=== PATIENT | female | born 1940 | race Caucasian/White ===

== ENCOUNTER 2022-09-04 06:47 | Emergency (ER) | payer MEDICARE ==
[~2022-09-04] VITALS: Ht 172.7 cm; Wt 93.0 kg
[2022-09-04 06:47] VITALS: BP_SYST 151
[2022-09-04] MEDS ORDERED: ASPIRIN 81 MG TABLET(ECOTRIN) PO ONE (07:00)
[2022-09-04 07:10] LABS: BASOPHILS # (AUTO) 0.1 K/uL (0.0-0.2); BASOPHILS % (AUTO) 0.9 % (0.0-2.0); EOSINOPHILS # (AUTO) 0.1 K/uL (0.0-0.4); EOSINOPHILS % (AUTO) 1.1 % (0.0-4.0); HEMATOCRIT 32.2 % (36-48); HEMOGLOBIN 10.4 g/dL (12.0-16.0); LYMPHOCYTES # (AUTO) 1.5 K/uL (1.0-5.5); LYMPHOCYTES % (AUTO) 12.1 % (20.5-51.5); MEAN CORPUSCULAR HEMOGLOBIN 29 pg (27-31); MEAN CORPUSCULAR HGB CONC 32 % (32-36); MEAN CORPUSCULAR VOLUME 90 fL (79.0-98.0); MONOCYTES # (AUTO) 1.1 K/uL (0.0-1.0); MONOCYTES % (AUTO) 9.3 % (1.7-9.3); NEUTROPHILS # (AUTO) 9.3 K/uL (1.8-7.7); NEUTROPHILS % (AUTO) 76.6 % (40.0-70.0); PLATELET COUNT (AUTO) 247 K/uL (130-430); RED BLOOD CELL COUNT(AUTO) 3.59 MIL/uL (4.2-6.2); WHITE BLOOD COUNT (AUTO) 12.1 K/uL (4.8-10.8)
[2022-09-04 07:37] LABS: ANION GAP 13 (5-15); CHLORIDE 105 mmol/L (98-107); CREATININE 3.07 mg/dL (0.55-1.30); GLUCOSE 139 mg/dL (70-99); UREA NITROGEN, BLOOD 48 mg/dL (8-21)
[2022-09-04 07:44] LABS: ALANINE AMINOTRANSFERASE 17 U/L (12-78); ALBUMIN 2.7 g/dL (3.4-4.8); ASPARTATE AMINOTRANSFERASE 13 U/L (10-37); TOTAL BILIRUBIN 0.3 mg/dL (0.0-1.0)
[2022-09-04 07:49] LABS: INR 3.5 (0.8-1.2)
[2022-09-04 07:51] LABS: PROTHROMBIN TIME 34.5 SECS (9.5-12.5)
[2022-09-04 12:56] VITALS: BP_SYST 159
== END 2022-09-04 12:53 | disposition short-term general hospital (02) ==
LOC: SED 06:47
DX: I24.9 Acute ischemic heart disease, unspecified (principal); R68.84 Jaw pain; M79.602 Pain in left arm; I10 Essential (primary) hypertension; Z79.899 Other long term (current) drug therapy; Z20.822 Contact with and (suspected) exposure to COVID-19
CPT/HCPCS: 36415; 71045; 80053; 83880; 84484; 85025; 85610-TC; 85730-TC; 99285

== ENCOUNTER 2022-11-09 09:55 | Emergency (ER) | payer MEDICARE ==
[~2022-11-09] VITALS: Ht 165.1 cm; Wt 77.1 kg
[2022-11-09 10:03] VITALS: BP_SYST 160; PULSE 80; RESP 18; TEMP 98.3; O2SAT 98
[2022-11-09] MEDS ORDERED: IPRATROPIUM/ALBUTEROL SULFATE 3 ML AMPUL.NEB (DUONEB) ONE (10:14)
[2022-11-09] MEDS ORDERED: ALBUTEROL SULFATE 0.083% 2.5 MG/3 ML VIAL.NEB INH ONE (10:15)
[2022-11-09] MEDS ORDERED: methylPREDNISolone SOD SUCC/PF 62.5 MG/ML VIAL IVP ONE (10:15)
[2022-11-09] MEDS ORDERED: IPRATROPIUM BROM 0.5 MG/2.5 ML VIAL.NEB (ATROVENT) INH ONE (10:15)
[2022-11-09 10:37] LABS: BASOPHILS # (AUTO) 0.1 K/uL (0.0-0.2); BASOPHILS % (AUTO) 0.4 % (0.0-2.0); EOSINOPHILS % (AUTO) 0.2 % (0.0-4.0); HEMATOCRIT 27.7 % (36-48); HEMOGLOBIN 9.1 g/dL (12.0-16.0); LYMPHOCYTES # (AUTO) 1.6 K/uL (1.0-5.5); MEAN CORPUSCULAR HEMOGLOBIN 28 pg (27-31); MEAN CORPUSCULAR HGB CONC 33 % (32-36); MEAN CORPUSCULAR VOLUME 86 fL (79.0-98.0); MONOCYTES # (AUTO) 2.5 K/uL (0.0-1.0); MONOCYTES % (AUTO) 12.5 % (1.7-9.3); NEUTROPHILS # (AUTO) 15.8 K/uL (1.8-7.7); NEUTROPHILS % (AUTO) 78.9 % (40.0-70.0); PLATELET COUNT (AUTO) 333 K/uL (130-430); RED BLOOD CELL COUNT(AUTO) 3.23 MIL/uL (4.2-6.2); RED CELL DISTRIBUTION WIDTH 15.7 % (9.0-15.0)
[2022-11-09 10:53] LABS: ANION GAP 12 (5-15); CALCIUM 9.3 mg/dL (8.4-11.0); CHLORIDE 103 mmol/L (98-107); CREATININE 3.22 mg/dL (0.55-1.30); GLUCOSE 195 mg/dL (74-106); UREA NITROGEN, BLOOD 50 mg/dL (8-21)
[2022-11-09 11:02] LABS: ALANINE AMINOTRANSFERASE 15 U/L (12-78); ALBUMIN 3.4 g/dL (3.4-4.8); ASPARTATE AMINOTRANSFERASE 10 U/L (10-37); TOTAL BILIRUBIN 0.5 mg/dL (0.0-1.0)
[2022-11-09 15:28] VITALS: BP_SYST 158; PULSE 85; RESP 16; TEMP 98.3; O2SAT 95
== END 2022-11-09 15:29 | disposition short-term general hospital (02) ==
LOC: SED 09:55
DX: J18.9 Pneumonia, unspecified organism (principal); J44.9 Chronic obstructive pulmonary disease, unspecified; R05.9 Cough, unspecified; R06.02 Shortness of breath; I10 Essential (primary) hypertension; Z79.899 Other long term (current) drug therapy; Z20.822 Contact with and (suspected) exposure to COVID-19
CPT/HCPCS: 80053; 83880; 85025; 87040; 84484; 36415; 93005; 71045; 94640; 94760; 99285; 96365; 96375; 83605; 87804 ×2; 87426; J1956; J2930; J7613

== ENCOUNTER 2023-06-27 12:07 | Emergency (ER) | payer MEDICARE ==
[~2023-06-27] VITALS: Ht 162.6 cm; Wt 77.1 kg
[2023-06-27 12:26] VITALS: BP_SYST 148; PULSE 105; RESP 18; TEMP 97; O2SAT 93
[2023-06-27 13:02] LABS: BASOPHILS % (AUTO) 0.4 % (0.0-2.0); EOSINOPHILS % (AUTO) 0.4 % (0.0-4.0); HEMOGLOBIN 9.2 g/dL (12.0-16.0); LYMPHOCYTES # (AUTO) 1.4 K/uL (1.0-5.5); MEAN CORPUSCULAR HEMOGLOBIN 25 pg (27-31); MEAN CORPUSCULAR HGB CONC 32 % (32-36); MEAN CORPUSCULAR VOLUME 80 fL (79.0-98.0); MONOCYTES % (AUTO) 9.6 % (1.7-9.3); NEUTROPHILS # (AUTO) 8.2 K/uL (1.8-7.7); NEUTROPHILS % (AUTO) 76.6 % (40.0-70.0); PLATELET COUNT (AUTO) 299 K/uL (130-430); RED BLOOD CELL COUNT(AUTO) 3.62 MIL/uL (4.2-6.2); RED CELL DISTRIBUTION WIDTH 19.6 % (9.0-15.0); WHITE BLOOD COUNT (AUTO) 10.7 K/uL (4.8-10.8)
[2023-06-27 13:12] LABS: ANION GAP 6 (5-15); CARBON DIOXIDE 31 mmol/L (23-29); CHLORIDE 101 mmol/L (98-107); CREATININE 2.31 mg/dL (0.55-1.30); GLUCOSE 86 mg/dL (74-106); POTASSIUM 3.8 mmol/L (3.5-5.1); SODIUM SERUM 138 mmol/L (136-145); UREA NITROGEN, BLOOD 24 mg/dL (8-21)
[2023-06-27 13:15] LABS: INR 1.5 (0.8-1.2); PROTHROMBIN TIME 15.3 SECS (9.5-12.5)
[2023-06-27 13:19] LABS: ALANINE AMINOTRANSFERASE 20 U/L (12-78); ALBUMIN 2.3 g/dL (3.4-4.8); ASPARTATE AMINOTRANSFERASE 20 U/L (10-37); BILIRUBIN,DIRECT 0.1 mg/dL (0.0-0.3); TOTAL BILIRUBIN 0.7 mg/dL (0.0-1.0); TOTAL PROTEIN, SERUM 6.2 g/dL (6.4-8.3)
[2023-06-27 13:48] LABS: BILIRUBIN,URINE NEGATIVE (NEGATIVE); COLOR,URINE YELLOW (YELLOW); GLUCOSE,URINE NEGATIVE (NEGATIVE); KETONES,URINE NEGATIVE (NEGATIVE); LEUKOCYTE ESTERASE ,URINE 1+ (NEGATIVE); NITRITE, URINE NEGATIVE (NEGATIVE); PH,URINE 8.5 (5.0-8.0); PROTEIN URINE 3+ (NEGATIVE); UROBILINOGEN,URINE 0.2 (0.2-1.0)
[2023-06-27 13:51] LABS: BLOOD, URINE TRACE (NEGATIVE); CLARITY/URINE HAZY (CLEAR)
[2023-06-27 13:58] LABS: BACTERIA,URINE FEW /HPF (None Seen); WBC,URINE 20-50 /HPF (0-3)
[2023-06-27] MEDS: cephALEXin 500 MG CAPSULE PO ONE (16:00)
[2023-06-27 17:56] VITALS: BP_SYST 149; PULSE 93; RESP 19; TEMP 97.6; O2SAT 94
== END 2023-06-27 17:56 | disposition short-term general hospital (02) ==
LOC: SED 12:07
DX: R07.9 Chest pain, unspecified (principal); N39.0 Urinary tract infection, site not specified; R42 Dizziness and giddiness; R53.1 Weakness; I12.9 Hypertensive chronic kidney disease with stage 1 through stage 4 chronic kidney disease, or unspecified chronic kidney disease; I48.91 Unspecified atrial fibrillation; I25.2 Old myocardial infarction
CPT/HCPCS: 36415; 71045; 80048; 80076; 81000; 81001; 81015; 83605; 84484; 85025; 85610; 85730; 87086; 93005; 99285